=== PATIENT | female | born 1985 | race Caucasian/White ===

== ENCOUNTER 2023-08-22 13:54 | Outpatient (CLI) | payer OTHER | END 2023-08-22 14:53 | disposition home or self-care (01) | LOC: NST 13:54 | PROVIDERS: ATTEND Obstetrics & Gynecology | DX: Z34.83 Encounter for supervision of other normal pregnancy, third trimester (principal) ==

== ENCOUNTER 2023-08-30 14:53 | Outpatient (CLI) | payer OTHER | END 2023-08-30 16:16 | disposition home or self-care (01) | LOC: NST 14:53 | PROVIDERS: ATTEND General Practice | DX: Z34.83 Encounter for supervision of other normal pregnancy, third trimester (principal) ==

== ENCOUNTER 2023-09-16 15:15 | Inpatient (IN) | payer OTHER ==
[~2023-09-16] VITALS: Ht 165.1 cm; Wt 72.6 kg
[2023-09-19] MEDS ORDERED: CHLORHEXIDINE GLUCONATE 120 ML BOTTLE TOP SCH (08:00)
[2023-09-19] MEDS ORDERED: OXYTOCIN 20 UNITS/1000ML RL PIGGYBAG IV ONE ×2 (08:00→12:22)
[2023-09-19] MEDS ORDERED: ERYTHROMYCIN BASE 1 GM TUBE OP SCH (08:00)
[2023-09-19] MEDS ORDERED: PRENATABS RX T1 EACH PO (08:13)
[2023-09-19] MEDS ORDERED: ADULT LOW DOSE81 M1 PO (08:14)
[2023-09-19 08:17] LABS: HEMATOCRIT 34.6 % (36.0-45.00); HEMOGLOBIN 11.7 g/dL (12.0-15.00); MEAN CELL VOLUME 87.3 fL (80.00-100.00); MEAN CORPUSCULAR HEMOGLOBIN 29.5 pg (27.00-32.0); MEAN CORPUSCULAR HGB CONC 33.8 g/dl (32.0-36.0); PLATELET COUNT 261 K/uL (150-450); RED BLOOD COUNT 3.96 M/uL (4.00-6.00); RED CELL DISTRIBUTION WIDTH 13.6 % (11.5-14.5)
[2023-09-19 08:35] LABS: INR < 0.93; PARTIAL THROMBOPLASTIN TIME 24.4 SECONDS (22.0-34.0); PROTHROMBIN TIME 9.7 SECONDS (9.0-11.5)
[2023-09-19 08:43] LABS: BILIRUBIN TOTAL 0.36 mg/dL (0.3-1.2); CALCIUM 8.8 mg/dL (8.5-10.1); CREATININE SERUM 0.65 mg/dL (0.55-1.02); GFR 103.72; GLOBULINA 3.8 G/DL (2.4-3.5); POTASSIUM 4.18 mEq/L (3.5-5.1); TOTAL PROTEIN 6.8 gm/dL (6.4-8.2)
[2023-09-19] MEDS ORDERED: DOCUSATE SODIUM 100MG CAP PO SCH (09:00)
[2023-09-19] MEDS ORDERED: IBUprofen 800 MG TABLET PO SCH (13:00)
[2023-09-20 09:37] LABS: HEMATOCRIT 32.4 % (36.0-45.00); HEMOGLOBIN 11.2 g/dL (12.0-15.00); MEAN CORPUSCULAR HEMOGLOBIN 30.8 pg (27.00-32.0); MEAN CORPUSCULAR HGB CONC 34.5 g/dl (32.0-36.0); PLATELET COUNT 234 K/uL (150-450); RED BLOOD COUNT 3.64 M/uL (4.00-6.00); RED CELL DISTRIBUTION WIDTH 13.3 % (11.5-14.5)
== END 2023-09-21 13:39 | disposition home or self-care (01) | DRG 807 ==
LOC: OB/GYN 09-19 07:30 → LDR 09-19 07:30 → OB/GYN 09-19 08:56
PROVIDERS: Obstetrics & Gynecology; ADMIT General Practice; ATTEND General Practice
PROC: 10E0XZZ Delivery of Products of Conception, External Approach (ICD-10-PCS; principal; 2023-09-19)
PROC: 0KQM0ZZ Repair Perineum Muscle, Open Approach (ICD-10-PCS; 2023-09-19)
PROC: 4A1HXCZ Monitoring of Products of Conception, Cardiac Rate, External Approach (ICD-10-PCS; 2023-09-19)
DX: O70.1 Second degree perineal laceration during delivery (principal); Z37.0 Single live birth; Z3A.39 39 weeks gestation of pregnancy; Z20.822 Contact with and (suspected) exposure to COVID-19